=== PATIENT | male | born 1990 | race American Indian/Alaskan Native ===

== ENCOUNTER 2022-03-08 11:19 | Emergency (ER) | payer MEDICAID ==
[2022-03-08 11:42] VITALS: BP 122/86
--- NOTE | 2022-03-08 11:48 | Emergency Department Report ---
Chief Complaint: Chest Pain Stated Complaint: LOW BLOOD PRESSURE Time Seen by Provider: 03/08/22 11:46 - HPI History of Present Illness: States he has had chest pain for the last year but over the last week pain has been worse and accompanied with intermittent shortness of breath, low blood pressure, and decreased appetite. Patient denies fever and dizziness. - ROS Review of Systems: Patient complains of chest pain and intermittent shortness of breath. Denies dizziness. - Exam Vital Signs: Vital Signs 03/08/22 11:39 Temperature 97.9 F Pulse Rate 56 L Respiratory 14 Rate Blood Pressure 122/86 O2 Sat by Pulse 98 Oximetry Physical Exam: Alert and oriented x3. No acute distress noted. MSE screening note: Focused history and physical exam performed. Due to findings the following was ordered: CBC, CMP, troponin, EKG, chest x-ray. Patient to be further evaluated and examined by provider when he gets in the room in the back. ED Disposition for MSE Condition: Stable
[2022-03-08 12:35] LABS: Hematocrit 45.2 % (35.5-45.6); Hemoglobin 15.5 gm/dl (11.8-15.2); Mean Corpuscular HGB Conc 34 % (32-34); Mean Corpuscular Volume 92 fl (84-94); Platelet Count 176 K/mm3 (140-440); Red Blood Count 4.94 M/mm3 (3.65-5.03); Red Cell Distribution Width 13.3 % (13.2-15.2)
--- NOTE | 2022-03-08 12:38 | XRay Report ---
CHEST 2 VIEWS INDICATION / CLINICAL INFORMATION: chest pain. COMPARISON: None available. FINDINGS: SUPPORT DEVICES: None. HEART / MEDIASTINUM: No significant abnormality. LUNGS / PLEURA: No significant pulmonary or pleural abnormality. No pneumothorax. ADDITIONAL FINDINGS: No significant additional findings. IMPRESSION: 1. No acute findings. Signer Name: Guillermo Mathis Jr, MD Signed: 03/08/2022 12:34 PM Workstation Name: [id number]
[2022-03-08 12:57] LABS: Alanine Aminotransferase 17 units/L (7-56); Albumin 4.3 g/dL (3.9-5); BUN/Creatinine Ratio 12; Blood Urea Nitrogen 11 mg/dL (9-20); Calcium 9.2 mg/dL (8.4-10.2); Hemolysis Index 6
--- NOTE | 2022-03-09 11:09 | Electrocardiograph Report ---
[facility] Test Date: 2022-03-08 Test Time: 11:43:14 Pat Name: MO SMITH Department: Room: Gender: M [employer]: DEMETRIUS : 1990 Requested By: MAIKOL POLANCO Order Number: [id number] Reading MD: Ben Be Measurements Intervals [place] Rate: 50 P: 35 CA: 176 QRS: 43 QRSD: 92 T: 31 QT: 422 QTc: 384 Interpretive Statements Sinus rhythm ST elev, probable normal early repol pattern No previous ECG available for comparison Electronically Signed On 03-09-2022 11:08:48 EDT by Ben Be
== END 2022-03-09 14:01 | disposition left against medical advice (07) ==
LOC: ED 11:19
DX: I95.9 Hypotension, unspecified (principal); Z53.21 Procedure and treatment not carried out due to patient leaving prior to being seen by health care provider
CPT/HCPCS: 36415; 71046; 80053; 84484; 85027; 93005